=== PATIENT | female | born 1995 | race Caucasian/White ===

== ENCOUNTER 2016-11-18 20:10 | Emergency (ER) | payer SELFPAY ==
[~2016-11-18] VITALS: Ht 167.6 cm; Wt 65.0 kg
[2016-11-18 20:19] VITALS: BP 120/84
== END 2016-11-18 23:40 | disposition left against medical advice (07) ==
LOC: ER 20:10
DX: R51 Headache (principal); Z53.21 Procedure and treatment not carried out due to patient leaving prior to being seen by health care provider